=== PATIENT | female | born 1985 | race African-American/Black ===

== ENCOUNTER 2018-05-13 13:42 | Emergency (ER) | payer MEDICAID ==
[~2018-05-13] VITALS: Ht 157.5 cm; Wt 68.0 kg
[2018-05-13] MEDS ORDERED: SODIUM CHLORIDE 0.9% 1,000 ML IV ONE (17:58)
[2018-05-13] MEDS ORDERED: FAMOTIDINE 20MG/2ML VIAL IV STA (17:58)
[2018-05-13 18:12] LABS: HEMOGLOBIN. 7.1 g/dL (12.0-16.0); MEAN CORPUSCULAR HEMOGLOBIN 17.8 pg (28.0-32.0); MEAN CORPUSCULAR VOLUME 62.3 fL (81.0-99.0); MEAN PLATELET VOLUME 9.3 fl (7.4-10.4); PLATELET 260 x1000/uL (130-400); RED BLOOD CELL COUNT 4.02 mill/uL (4.2-5.4); RED CELL DISTRIBUTION WIDTH 20.4 % (11.6-14.6)
[2018-05-13 18:16] LABS: CHLORIDE 110 mEq/L (98-107)
[2018-05-13 18:18] LABS: PROTHROMBIN TIME 9.9 sec (9.1-11.1)
[2018-05-13 18:59] LABS: PLATELET ESTIMATE NORMAL
[2018-05-13 20:45] VITALS: BP 118/64
[2018-05-14 09:59] LABS: CLARITY URINE CLOUDY (CLEAR); COLOR URINE YELLOW (YELLOW); KETONES URINE NEGATIVE (NEGATIVE); LEUKOCYTE ESTERASE URINE NEGATIVE (NEGATIVE); NITRITE URINE POSITIVE (NEGATIVE); OCCULT BLOOD URINE 1+ (NEGATIVE); PROTEIN URINE TRACE (NEGATIVE); SPECIFIC GRAVITY URINE 1.016 (1.005-1.030); UROBILINOGEN URINE 0.2 E.U./dL (0.2-1.0)
== END 2018-05-13 20:45 | disposition home or self-care (01) ==
LOC: ER 13:42
DX: D64.9 Anemia, unspecified (principal); R07.9 Chest pain, unspecified; R30.0 Dysuria; R06.02 Shortness of breath; F17.200 Nicotine dependence, unspecified, uncomplicated
CPT/HCPCS: 36415; 71045; 80053; 81025; 83690; 84484; 85025; 85610; 93005; 96374; 99285; J3490; J7030; Z7610